=== PATIENT | male | born 1975 | race Caucasian/White ===

== ENCOUNTER 2017-05-03 08:16 | Emergency (ER) | payer MEDICAID ==
--- NOTE | 2017-05-03 08:53 | ED Physician Documentation ---
PD HPI ABD PAIN - Stated complaint Stated Complaint: L SIDE BACK PX - Chief complaint Chief Complaint: Abd Pain - History obtained from History obtained from: Patient - History of Present Illness Timing - onset: How many days ago (3) Timing - duration: Days (3) Timing - details: Abrupt onset, Still present, Waxing and waning (has noted some hematuria without clots the past month, but pain in flank only the past 3 days, worse today.) Quality: Aching, Sharp, Pain Location: LLQ Radiation: Left flank Improved by: BM (or passing gas, helps some of the pain, but then just steady pain left flank otherwise.). No: Eating Worsened by: No: Eating Associated symptoms: Nausea, Hematuria. No: Fever, Vomiting, Diarrhea (but has some loose stool the past 3 days.), Melena, Hematochezia, Dysuria, Chest pain Similar symptoms before: Has not had sx before Recently seen: Not recently seen Review of Systems Constitutional: denies: Fever, Chills, Myalgias Nose: denies: Rhinorrhea / runny nose, Congestion Throat: denies: Sore throat Cardiac: denies: Chest pain / pressure Respiratory: denies: Dyspnea, Cough GI: reports: Abdominal Pain. denies: Abdominal Swelling, Nausea, Vomiting, Constipation, Hematemesis, Bloody / black stool : reports: Hematuria. denies: Dysuria Skin: denies: Rash, Lesions PD PAST MEDICAL HISTORY - Past Medical History Past Medical History: No GI: None : None - Past Surgical History Past Surgical History: No - Present Medications Home Medications: Ambulatory Orders Medication Instructions Recorded Confirmed Dicyclomine [Bentyl] 10 mg PO QID PRN #15 capsule 05/03/17 HYDROcod/ACETAM 5/325 [[place] 5/325] 1 tab PO Q6H PRN #15 tablet 05/03/17 Naproxen [Naprosyn] 500 mg PO BID PRN #20 tablet 05/03/17 Ondansetron Odt [Zofran] 4 mg TL Q6H PRN #15 tablet 05/03/17 - Allergies Allergies/Adverse Reactions: Allergies Allergy/AdvReac Type Severity Reaction Status Date / Time No Known Drug Allergies Allergy Verified 02/24/14 02:56 - Social History Does the pt smoke?: No Smoking Status: Current every day smoker Does the pt drink ETOH?: Yes ETOH Use: Beer, Liquor Does the pt have substance abuse?: No - Immunizations Immunizations are current?: No - POLST Patient has POLST: No PD ED PE NORMAL - Vitals Vital signs reviewed: Yes - General General: Alert and oriented X 3, No acute distress, Well developed/nourished - HEENT HEENT: Moist mucous membranes, Pharynx benign - Neck Neck: Supple, no meningeal sign, No adenopathy - Cardiac Cardiac: RRR, No murmur - Respiratory Respiratory: Clear bilaterally - Abdomen Abdomen: Normal bowel sounds, Soft, Non tender, Non distended, No organomegaly - Back Back: Other (left CVA tenderness to percussion. ) - Derm Derm: Normal color, Warm and dry Results - Vitals Vitals: Vital Signs - 24 hr 05/03/17 05/03/17 09:42 12:10 Heart Rate 75 83 Respiratory 16 18 Rate Blood Pressure 114/72 116/72 O2 Saturation 100 98 Oxygen O2 Source Room air - Labs Labs: Laboratory Tests 05/03/17 05/03/17 05/03/17 08:30 08:30 09:20 WBC 10.9 H RBC 4.80 Hgb 15.9 Hct 45.9 MCV 95.6 H MCH 33.2 H MCHC 34.8 RDW 12.9 Plt Count 168 MPV 8.7 Neut # 7.3 H Lymph # 2.4 [place] # 0.8 Eos # 0.3 Baso # 0.1 Absolute Nucleated RBC 0.01 Nucleated RBCs 0.1 Sodium 143 Potassium 4.0 Chloride 105 Carbon Dioxide 27 Anion Gap 11.0 BUN 8 Creatinine 0.7 Estimated GFR (MDRD) 123 Glucose 156 H Calcium 9.5 Total Bilirubin 0.4 AST 38 ALT 24 Alkaline Phosphatase 58 Total Protein 7.9 Albumin 4.6 Globulin 3.3 Albumin/Globulin Ratio 1.4 Lipase 31 Urine Color BROWN Urine Clarity SL. CLOUDY Urine pH 6.5 Ur Specific [place] 1.025 Urine Protein 100 H Urine Glucose (UA) NEGATIVE Urine Ketones TRACE Urine Occult Blood LARGE H Urine Nitrite NEGATIVE Urine Bilirubin NEGATIVE Urine Urobilinogen 1 (NORMAL) Ur Leukocyte Esterase NEGATIVE Urine RBC TNTC H Urine WBC 0-3 Ur Squamous Epith Cells NONE SEEN Urine Bacteria Rare Urine Mucus Marked Strands Ur Microscopic Review INDICATED Urine Culture Comments NOT INDICATED Ethyl Alcohol 115.7 - Rads (name of study) KUB CT Radiology: Prelim report reviewed (proximal left ureteral stone, 3 mm, without other structural abnormal seen.) PD MEDICAL DECISION MAKING - ED course Complexity details: reviewed results, re-evaluated patient (feeling better with IV meds. Has stone without other abnormal seen. ), considered differential ( presume had some irritation from stone causing hematuria the past month, and now passing it. It is small size. No other abnormal on CT. He has some abd pain left side that improves with passing gas, so some intestinal aspect. Perhaps triggered by the stone or could be coincidental enteritis, which would be strange coincidence.), d/w patient Departure - Departure Disposition: 01 Home, Self Care Clinical Impression: Flank pain, acute, Hematuria, Ureterolithiasis Condition: Stable Record reviewed to determine appropriate education?: Yes Instructions: ED Stone Renal W Colic Follow-Up: [facility] [Provider Group] [facility] [Provider Group] Prescriptions: Dicyclomine [Bentyl] 10 mg PO QID PRN #15 capsule PRN Reason: Spasms Naproxen [Naprosyn] 500 mg PO BID PRN #20 tablet PRN Reason: Pain HYDROcod/ACETAM 5/325 [[place] 5/325] 1 tab PO Q6H PRN #15 tablet PRN Reason: Pain Ondansetron Odt [Zofran] 4 mg TL Q6H PRN #15 tablet PRN Reason: Nausea / Vomiting Comments: Maintain good hydration with lots of fluids. Naproxen twice daily for the next 5-7 days for the pain. Add Tylenol or hydrocodone if needed for worse pain. Ondansetron if needed for nausea. You are also having intestinal cramps and can use dicyclomine for that. This may be triggered by the kidney stone in the ureter irritating the intestine or may be a separate process. Recheck if that is not improved over the next couple of days. Regarding the flank pain from the kidney stone, follow-up with urology or family doctor if not improved over the next few days as well. Return sooner if increasing pain despite medications. I presume as the stone passes then the blood in the urine should clear as well. Discharge Date/Time: 05/03/17 12:31
[2017-05-03] MEDS ORDERED: HYDROmorphone 1 MG/ML SYRINGE IVP STA (09:12)
[2017-05-03] MEDS ORDERED: SODIUM CHLORIDE 0.9% 1,000 ML IV ONE ×2 (09:12→09:14)
[2017-05-03] MEDS ORDERED: ONDANSETRON 4 MG/2 ML VIAL IVP STA (09:12)
[2017-05-03 09:21] LABS: BASOPHILS # (AUTO) 0.1 10^3/uL (0.0-0.1); BASOPHILS % (AUTO) 0.6 %; EOSINOPHILS # (AUTO) 0.3 10^3/uL (0.0-0.7); EOSINOPHILS % (AUTO) 2.8 %; HCT - HEMATOCRIT 45.9 % (42.0-52.0); HGB - HEMOGLOBIN 15.9 g/dL (14.0-18.0); LYMPHOCYTES # (AUTO) 2.4 10^3/uL (1.5-3.5); LYMPHOCYTES % (AUTO) 22.3 %; MEAN CORPUSCULAR HEMOGLOBIN 33.2 pg (27.0-31.0); MEAN CORPUSCULAR HGB CONC 34.8 g/dL (32.0-36.0); MEAN CORPUSCULAR VOLUME 95.6 fL (80.0-94.0); MEAN PLATELET VOLUME 8.7 fL (7.4-11.4); MONOCYTES # (AUTO) 0.8 10^3/uL (0.0-1.0); MONOCYTES % (AUTO) 7.3 %; NEUTROPHILS # (AUTO) 7.3 10^3/uL (1.5-6.6); NUCLEATED RED BLOOD CELLS AUTO 0.1 /100WBC; RED CELL DISTRIBUTION WIDTH 12.9 % (12.0-15.0); UNCORRECTED WHITE BLOOD COUNT 10.9 x10^3/uL; WHITE BLOOD COUNT 10.9 x10^3/uL (4.8-10.8)
[2017-05-03] MEDS ORDERED: ONDANSETRON 4 MG/2 ML VIAL ONE (09:25)
[2017-05-03] MEDS ORDERED: HYDROmorphone 1 MG/ML SYRINGE ONE (09:25)
[2017-05-03 09:38] LABS: ALBUMIN/GLOBULIN RATIO 1.4 (1.0-2.2); BILIRUBIN,TOTAL 0.4 mg/dL (0.2-1.0); CALCIUM 9.5 mg/dL (8.5-10.3); CREATININE 0.7 mg/dL (0.6-1.2); TOTAL PROTEIN 7.9 g/dL (6.7-8.2)
[2017-05-03 09:38] LABS: PH,URINE 6.5 PH (5.0-7.5)
[2017-05-03 09:48] LABS: UA w/ MICROSCOPIC CHARGE YES
[2017-05-03 09:51] LABS: BILIRUBIN,URINE NEGATIVE (NEGATIVE)
[2017-05-03 09:56] LABS: UR CULTURE IF IND NOT INDICATED; WBC,URINE 0-3 /HPF (0-3)
[2017-05-03] MEDS ORDERED: KETOROLAC 60 MG/2 ML VIAL IVP STA (10:02)
[2017-05-03] MEDS ORDERED: ACETAMINOPHEN 1,000 MG/100 ML 100 ML IV STA (10:02)
[2017-05-03] MEDS ORDERED: DIPHENOX/ATROPINE 2.5/0.025 MG TABLET PO STA (10:03)
--- NOTE | 2017-05-03 10:05 | CT Preliminary Report ---
Exam: CT Abdomen/Pelvis W/O Impression: 3 mm calculus within the left proximal ureter causing mild hydronephrosis and mild proxim al hydroureter. Punctate calcification in the lower pole of the right kidney that may be vascular in origin or repres ent a nonobstructing calculus. [facility] SITE ID: [id number]
--- NOTE | 2017-05-03 10:08 | CT Report ---
EXAM: CT ABDOMEN AND PELVIS (CT KUB) EXAM DATE: 05/03/2017 09:47 AM. CLINICAL HISTORY: Left flank pain; blood in urine. COMPARISONS: None. TECHNIQUE: Routine axial helical CT imaging was performed through the abdomen and pelvis without IV c ontrast. Reconstructions: Coronal and sagittal. In accordance with CT protocol optimization, one or more of the following dose reduction techniques w ere utilized for this exam: automated exposure control, adjustment of mA and/or KV based on patient s ize, or use of iterative reconstructive technique. FINDINGS: The lung bases are without evidence of a mass or infiltrate. The liver, spleen, pancreas, and adrenal glands demonstrate a normal noncontrast CT appearance. The r ight kidney is without evidence of nephrolithiasis. There is a punctate calcification in the lower po le of the right kidney (image 58 of series 3). This appears to be vascular in origin and could also r epresent a nonobstructing calculus. There is mild left hydronephrosis and mild left hydroureter. This extends to the level of a 3 mm calculus (image 64 of series 3). The left distal ureter is not dilate d. The urinary bladder is without evidence of a calculus. The appendix is normal in appearance. There are no dilated loops of bowel to suggest the presence of an obstruction. There is no evidence of diverticulosis or diverticulitis. No mass or cyst is seen wit hin the pelvis. Nonspecific prosthetic calcifications are noted. There are degenerative changes of the thoracic spine. Impression: 3 mm calculus within the left proximal ureter causing mild hydronephrosis and mild proxim al hydroureter. Punctate calcification in the lower pole of the right kidney that may be vascular in origin or repres ent a nonobstructing calculus. [facility] Referring Provider Line: [phone] SITE ID: [id number]
[2017-05-03] MEDS ORDERED: KETOROLAC 30 MG/ML VIAL ONE (10:22)
[2017-05-03] MEDS ORDERED: DIPHENOX/ATROPINE 2.5/0.025 MG TABLET PO ONE (10:22)
[2017-05-03] MEDS ORDERED: ACETAMINOPHEN 1,000 MG/100 ML 100 ML IV ONE (10:23)
[2017-05-03 12:11] VITALS: BP 116/72
== END 2017-05-03 12:31 | disposition home or self-care (01) ==
LOC: ED 08:16
DX: N13.2 Hydronephrosis with renal and ureteral calculous obstruction (principal); R31.9 Hematuria, unspecified; F17.200 Nicotine dependence, unspecified, uncomplicated
CPT/HCPCS: 36415; 74176; 80053; 80320; 81001; 83690; 85025; 87491; 87591; 96361; 96374; 96375; 99284; A9270; J0131; 81003; 87086

== ENCOUNTER 2019-01-08 08:00 | Outpatient (CLI) | payer MEDICAID ==
[2019-01-08 19:55] LABS: BASOPHILS # (AUTO) 0.1 10^3/uL (0.0-0.1); BASOPHILS % (AUTO) 0.7 %; EOSINOPHILS # (AUTO) 0.3 10^3/uL (0.0-0.7); EOSINOPHILS % (AUTO) 4.2 %; HGB - HEMOGLOBIN 15.6 g/dL (14.0-18.0); LYMPHOCYTES # (AUTO) 1.5 10^3/uL (1.5-3.5); LYMPHOCYTES % (AUTO) 20.9 %; MEAN CORPUSCULAR HEMOGLOBIN 31.9 pg (27.0-31.0); MEAN CORPUSCULAR HGB CONC 33.7 g/dL (32.0-36.0); MEAN CORPUSCULAR VOLUME 94.8 fL (80.0-94.0); MEAN PLATELET VOLUME 9.3 fL (7.4-11.4); MONOCYTES # (AUTO) 0.6 10^3/uL (0.0-1.0); MONOCYTES % (AUTO) 8.3 %; NEUTROPHILS # (AUTO) 4.8 10^3/uL (1.5-6.6); NEUTROPHILS % (AUTO) 65.9 %; PLT - PLATELET COUNT 184 10^3/uL (130-450); RED BLOOD COUNT 4.88 10^6/uL (4.70-6.10); RED CELL DISTRIBUTION WIDTH 12.8 % (12.0-15.0); WHITE BLOOD COUNT 7.3 x10^3/uL (4.8-10.8)
[2019-01-08 20:26] LABS: BUN - BLOOD UREA NITROGEN 14 mg/dL (6-20); CALCIUM 9.3 mg/dL (8.5-10.3); CARBON DIOXIDE - CO2 26 mmol/L (21-32); CHLORIDE 103 mmol/L (101-111); CHOL/HDL RATIO 2.7 (<5.0); CHOLESTEROL 195 mg/dL; CREATININE 0.8 mg/dL (0.6-1.2); GFR - MDRD 105 (>89); GLUCOSE 106 mg/dL (70-100); HDL CHOLESTEROL 72 mg/dL; LDL CHOLESTEROL,CALCULATED 106 mg/dL; LDL/HDL RATIO 1.5 (<3.6); SODIUM 138 mmol/L (135-145); VLDL CHOLESTEROL 17 mg/dL
[2019-01-10 12:07] LABS: HEPATITIS C ANTIBODY NON-REACTIVE (NON-REACTIVE)
[2019-01-10 14:06] LABS: HIV AG/AB 4TH GEN NON-REACTIVE (NON-REACTIVE)
[2019-01-11 15:26] LABS: HSV 1 IGG TYPE SPECIFIC AB 22.9 index; HSV 2 IGG TYPE SPECIFIC AB 10.2 index
== END 2019-01-08 23:59 | disposition home or self-care (01) ==
LOC: LAB.N 08:00
PROVIDERS: ATTEND Physician Assistant Medical
DX: F32.9 Major depressive disorder, single episode, unspecified (principal); Z13.220 Encounter for screening for lipoid disorders; Z11.3 Encounter for screening for infections with a predominantly sexual mode of transmission
CPT/HCPCS: 36415; 80048; 80061; 81599; 83721; 84443; 85025; 86592; 86695; 86696; 86803; 87389; 87491; 87591

== ENCOUNTER 2019-06-11 13:31 | Emergency (ER) | payer MEDICAID ==
[2019-06-11 14:13] LABS: BILIRUBIN,URINE NEGATIVE (NEGATIVE); GLUCOSE, URINE (UA) NEGATIVE (NEGATIVE); KETONES,URINE (UA) TRACE mg/dL (NEGATIVE); LEUKOCYTE ESTERASE, URINE NEGATIVE (NEGATIVE); NITRITE,URINE NEGATIVE (NEGATIVE); OCCULT BLOOD,URINE LARGE (NEGATIVE); PH,URINE 6.5 PH (5.0-7.5); PROTEIN,URINE TRACE mg/dL (NEGATIVE); UROBILINOGEN,URINE 0.2 (NORMAL) E.U./dL (NORMAL)
[2019-06-11 14:14] LABS: CLARITY,URINE CLEAR (CLEAR)
[2019-06-11 14:20] LABS: BASOPHILS # (AUTO) 0.1 10^3/uL (0.0-0.1); BASOPHILS % (AUTO) 0.6 %; EOSINOPHILS # (AUTO) 0.3 10^3/uL (0.0-0.7); EOSINOPHILS % (AUTO) 2.4 %; LYMPHOCYTES # (AUTO) 2.2 10^3/uL (1.5-3.5); LYMPHOCYTES % (AUTO) 16.9 %; MEAN CORPUSCULAR HEMOGLOBIN 32.7 pg (27.0-31.0); MEAN CORPUSCULAR HGB CONC 33.8 g/dL (32.0-36.0); MEAN CORPUSCULAR VOLUME 96.7 fL (80.0-94.0); MEAN PLATELET VOLUME 10.3 fL (7.4-11.4); MONOCYTES # (AUTO) 0.9 10^3/uL (0.0-1.0); MONOCYTES % (AUTO) 7.1 %; NEUTROPHILS # (AUTO) 9.3 10^3/uL (1.5-6.6); NEUTROPHILS % (AUTO) 72.5 %; PLT - PLATELET COUNT 192 10^3/uL (130-450); RED CELL DISTRIBUTION WIDTH 12.4 % (12.0-15.0); WHITE BLOOD COUNT 12.9 x10^3/uL (4.8-10.8)
[2019-06-11 14:22] LABS: BACTERIA,URINE None Seen /HPF (None Seen); RBC,URINE TNTC /HPF (0-5); SQUAMOUS EPITHELIAL CELL,UR NONE SEEN (<= Few)
--- NOTE | 2019-06-11 14:24 | ED Physician Documentation ---
PD HPI ABD PAIN - Stated complaint Stated Complaint: R SIDE PX - Chief complaint Chief Complaint: Abd Pain - History obtained from History obtained from: Patient - History of Present Illness Timing - onset: How many hours ago (2) Timing - duration: Hours (2) Timing - details: Abrupt onset, Still present Quality: Aching, Sharp, Pain Location: RLQ Radiation: Right flank Improved by: Vomiting. No: Eating, Position Worsened by: No: Eating, Breathing, Position Associated symptoms: Nausea, Vomiting. No: Fever, Diarrhea, Dysuria Similar symptoms before: Diagnosis (kidney stone in the past, few years ago.) Recently seen: Not recently seen Review of Systems Constitutional: denies: Fever, Chills Nose: denies: Rhinorrhea / runny nose, Congestion Throat: denies: Sore throat Respiratory: denies: Cough GI: reports: Abdominal Pain, Nausea, Vomiting. denies: Abdominal Swelling, Diarrhea : denies: Dysuria, Frequency Musculoskeletal: reports: Back pain (right flank). denies: Neck pain Neurologic: denies: Generalized weakness PD PAST MEDICAL HISTORY - Past Medical History Cardiovascular: None Respiratory: None Neuro: None Endocrine/Autoimmune: None GI: None : Kidney stones - Past Surgical History Past Surgical History: No - Present Medications Home Medications: Ambulatory Orders Medication Instructions Recorded Confirmed Dicyclomine [Bentyl] 10 mg PO QID PRN #15 capsule 05/03/17 HYDROcod/ACETAM 5/325 [[place] 5/325] 1 tab PO Q6H PRN #15 tablet 05/03/17 Naproxen [Naprosyn] 500 mg PO BID PRN #20 tablet 05/03/17 Ondansetron Odt [Zofran] 4 mg TL Q6H PRN #15 tablet 05/03/17 Ondansetron Odt [Zofran] 4 mg TL Q6H PRN #10 tablet 06/11/19 Oxycodone HCl/Acetaminophen 1 each PO Q4H PRN #20 tablet 06/11/19 [Percocet 7.5-325 mg Tablet] Tamsulosin [Flomax] 0.4 mg PO DAILY #5 capsule 06/11/19 dexAMETHasone [Decadron] 4 mg PO DAILY #5 tablet 06/11/19 - Allergies Allergies/Adverse Reactions: Allergies Allergy/AdvReac Type Severity Reaction Status Date / Time No Known Drug Allergies Allergy Verified 06/11/19 13:34 - Social History Does the pt smoke?: No Smoking Status: Current every day smoker Does the pt drink ETOH?: Yes Does the pt have substance abuse?: No - Immunizations Immunizations are current?: No - POLST Patient has POLST: No PD ED PE NORMAL - Vitals Vital signs reviewed: Yes - General General: Alert and oriented X 3, Well developed/nourished, Other (appears very uncomfortable, with active vomiting and marked pain. ) - HEENT HEENT: Pharynx benign - Neck Neck: Supple, no meningeal sign, No adenopathy - Cardiac Cardiac: RRR, No murmur - Respiratory Respiratory: Clear bilaterally - Abdomen Abdomen: Normal bowel sounds, Soft, Non distended, No organomegaly, Other (t karen RLQ and right CVA) - Male Male : Deferred - Rectal Rectal: Deferred - Derm Derm: Normal color, Warm and dry - Extremities Extremities: Normal ROM s pain, No edema, No calf tenderness / cord - Neuro Neuro: Alert and oriented X 3, No motor deficit, Normal speech Results - Vitals Vitals: Vital Signs - 24 hr 06/11/19 06/11/19 13:34 15:50 Temperature 36.2 C L Heart Rate 72 65 Respiratory 24 18 Rate Blood Pressure 144/88 H 130/85 H O2 Saturation 100 99 Oxygen O2 Source Room air - Labs Labs: Laboratory Tests 06/11/19 06/11/19 06/11/19 14:08 14:15 14:15 WBC 12.9 H RBC 4.90 Hgb 16.0 Hct 47.4 MCV 96.7 H MCH 32.7 H MCHC 33.8 RDW 12.4 Plt Count 192 MPV 10.3 Neut # (Auto) 9.3 H Lymph # (Auto) 2.2 [place] # (Auto) 0.9 Eos # (Auto) 0.3 Baso # (Auto) 0.1 Absolute Nucleated RBC 0.00 Nucleated RBC % 0.0 Sodium 143 Potassium 3.5 Chloride 105 Carbon Dioxide 22 Anion Gap 16.0 H BUN 11 Creatinine 1.0 Estimated GFR (MDRD) 80 L Glucose 115 H Calcium 9.5 Total Bilirubin 0.8 AST 29 ALT 21 Alkaline Phosphatase 58 Total Protein 7.8 Albumin 4.1 Globulin 3.7 Albumin/Globulin Ratio 1.1 Lipase 37 Urine Color YELLOW Urine Clarity CLEAR Urine pH 6.5 Ur Specific [place] 1.025 Urine Protein TRACE Urine Glucose (UA) NEGATIVE Urine Ketones TRACE Urine Occult Blood LARGE H Urine Nitrite NEGATIVE Urine Bilirubin NEGATIVE Urine Urobilinogen 0.2 (NORMAL) Ur Leukocyte Esterase NEGATIVE Urine RBC TNTC H Urine WBC 0-3 Ur Squamous Epith Cells NONE SEEN Urine Bacteria None Seen Ur Microscopic Review INDICATED Urine Culture Comments NOT INDICATED - Rads (name of study) KUB CT Radiology: Prelim report reviewed, EMP read contemporaneously (3 mm stone at the distal UVJ, almost into the bladder. Moderate right hydronephrosis. ), See rad report PD MEDICAL DECISION MAKING - ED course Complexity details: re-evaluated patient (much improved with several meds for kidney stone. ), considered differential, d/w patient Departure - Departure Disposition: 01 Home, Self Care Clinical Impression: Right sided abdominal pain, Ureterolithiasis Condition: Stable Record reviewed to determine appropriate education?: Yes Instructions: ED Stone Renal W Colic Prescriptions: dexAMETHasone [Decadron] 4 mg PO DAILY #5 tablet Ondansetron Odt [Zofran] 4 mg TL Q6H PRN #10 tablet PRN Reason: Nausea / Vomiting Oxycodone HCl/Acetaminophen [Percocet 7.5-325 mg Tablet] 1 each PO Q4H PRN #20 tablet PRN Reason: Pain Tamsulosin [Flomax] 0.4 mg PO DAILY #5 capsule Comments: Adequate hydration. Use some Tylenol or ibuprofen if needed for mild pains. Percocet if needed for worse pain. Ondansetron if needed for nausea. Your stone is 3 to 4 mm and is passable size and is almost into the bladder at this point. Add Decadron steroid for inflammation and tamsulosin antispasmodic to try to reduce tension of the ureter muscles to help promote passage. Recheck if not improved over the next few days. Return sooner if worse again despite medication. Discharge Date/Time: 06/11/19 16:24
[2019-06-11] MEDS ORDERED: HYDROmorphone 1 MG/ML CARPUJECT IVP STA (14:26)
[2019-06-11] MEDS ORDERED: ONDANSETRON 4 MG/2 ML VIAL IVP STA (14:26)
[2019-06-11] MEDS ORDERED: SODIUM CHLORIDE 0.9% 1,000 ML IV ONE (14:26)
[2019-06-11] MEDS ORDERED: LIDOCAINE-MPF 2% 6 ML in SODIUM CHLORIDE 0.9% 50 ML IV STA (14:26)
[2019-06-11] MEDS ORDERED: KETOROLAC 30 MG/ML VIAL IVP STA (14:26)
[2019-06-11 14:50] LABS: ALBUMIN 4.1 g/dL (3.2-5.5); ALBUMIN/GLOBULIN RATIO 1.1 (1.0-2.2); BILIRUBIN,TOTAL 0.8 mg/dL (0.2-1.0); CALCIUM 9.5 mg/dL (8.5-10.3); TOTAL PROTEIN 7.8 g/dL (6.7-8.2)
[2019-06-11] MEDS ORDERED: DEXAMETHASONE 10 MG/ML VIAL IVP STA (15:09)
--- NOTE | 2019-06-11 15:22 | CT Report ---
Reason: right flank/abd pain onset 11:30 today Procedure Date: 06/11/2019 Accession Number: [id number] / [id number] Procedure: CT - Abdomen/Pelvis WO CPT Code: FULL RESULT: EXAM: CT ABDOMEN AND PELVIS EXAM DATE: 06/11/2019 03:00 PM. CLINICAL HISTORY: Right flank/abd pain onset 11: 30 today. COMPARISONS: ABDOMEN/PELVIS W/O 05/03/2017 9:31 AM. TECHNIQUE: Routine helical CT imaging was performed through the abdomen and pelvis. IV contrast: None. Enteric contrast: No. Reconstructions: Coronal and sagittal. In accordance with CT protocol optimization, one or more of the following dose reduction techniques were utilized for this exam: automated exposure control, adjustment of mA and/or KV based on patient size, or use of iterative reconstructive technique. FINDINGS: Lung Bases: Unremarkable. Small hiatal hernia Liver: Normal. No masses. Gallbladder/Bile Ducts: Unremarkable. Spleen: Normal. Pancreas: Normal. Adrenal Glands: Normal. Kidneys: Right kidney: Mild hydroureteronephrosis down to a 7 x 3 mm ureteral calculi at the ureterovesical junction. There is upper pole nonobstructing 4 mm calcification. Left kidney: Unremarkable. Peritoneal Cavity/Bowel: Normal. No free fluid, free air or adenopathy. No masses or acute inflammatory process. The appendix is well visualized and normal. Pelvic Organs: Prostate calcifications The bladder and visualized pelvic organs are otherwise within normal limits. Vasculature: No aneurysms or other significant abnormality. Bones: No significant abnormality. Other: None. IMPRESSION: 1. Mild right hydroureteronephrosis down to a 7 x 3 mm ureteral calculi at the ureterovesical junction. Upper pole nonobstructing 4 mm calcifications [facility]
[2019-06-11] MEDS ORDERED: TAMSULOSIN 0.4 MG CAPSULE PO STA (15:37)
[2019-06-11 15:51] VITALS: BP 130/85
== END 2019-06-11 16:24 | disposition home or self-care (01) ==
LOC: ED 13:31
DX: N13.2 Hydronephrosis with renal and ureteral calculous obstruction (principal); Z87.442 Personal history of urinary calculi; F17.200 Nicotine dependence, unspecified, uncomplicated
CPT/HCPCS: 36415; 74176; 80053; 81001; 83690; 85025; 96365; 96375; 99284; 99285; A9270; J1170; J7040; 81003; 87086

== ENCOUNTER 2020-01-23 16:41 | Outpatient (CLI) | payer MEDICAID | END 2020-01-23 16:42 | disposition home or self-care (01) | LOC: COV 16:41 | PROVIDERS: ATTEND Family Medicine | DX: R50.9 Fever, unspecified (principal); R05 Cough; R06.02 Shortness of breath; M79.10 Myalgia, unspecified site; R53.83 Other fatigue; R19.7 Diarrhea, unspecified | CPT/HCPCS: 81599 ==

== ENCOUNTER 2020-06-10 11:58 | Outpatient (CLI) | payer MEDICAID ==
[2020-06-10 18:12] LABS: BASOPHILS # (AUTO) 0.1 10^3/uL (0.0-0.1); BASOPHILS % (AUTO) 1.1 %; EOSINOPHILS # (AUTO) 0.3 10^3/uL (0.0-0.7); EOSINOPHILS % (AUTO) 3.5 %; HGB - HEMOGLOBIN 15.7 g/dL (14.0-18.0); LYMPHOCYTES # (AUTO) 1.9 10^3/uL (1.5-3.5); LYMPHOCYTES % (AUTO) 25.8 %; MEAN CORPUSCULAR HEMOGLOBIN 33.2 pg (27.0-31.0); MEAN CORPUSCULAR HGB CONC 32.4 g/dL (32.0-36.0); MEAN CORPUSCULAR VOLUME 102.5 fL (80.0-94.0); MEAN PLATELET VOLUME 10.7 fL (7.4-11.4); MONOCYTES # (AUTO) 0.7 10^3/uL (0.0-1.0); MONOCYTES % (AUTO) 9.8 %; NEUTROPHILS # (AUTO) 4.4 10^3/uL (1.5-6.6); NEUTROPHILS % (AUTO) 59.4 %; PLT - PLATELET COUNT 198 10^3/uL (130-450); RED BLOOD COUNT 4.73 10^6/uL (4.70-6.10); RED CELL DISTRIBUTION WIDTH 11.8 % (12.0-15.0); WHITE BLOOD COUNT 7.3 x10^3/uL (4.8-10.8)
[2020-06-10 18:35] LABS: ALBUMIN 4.4 g/dL (3.2-5.5); ALBUMIN/GLOBULIN RATIO 1.2 (1.0-2.2); BILIRUBIN,TOTAL 0.8 mg/dL (0.2-1.0); CALCIUM 10.2 mg/dL (8.5-10.3); CREATININE 0.7 mg/dL (0.6-1.2); TOTAL PROTEIN 8.2 g/dL (6.7-8.2)
== END 2020-06-10 23:59 | disposition home or self-care (01) ==
LOC: LAB.WCP 11:58
PROVIDERS: ATTEND Nurse Practitioner
DX: Z13.228 Encounter for screening for other metabolic disorders (principal); R10.9 Unspecified abdominal pain; R53.83 Other fatigue
CPT/HCPCS: 36415; 80053; 84443; 85025

== ENCOUNTER 2020-06-15 17:36 | Outpatient (CLI) | payer MEDICAID ==
--- NOTE | 2020-06-15 19:48 | Ultrasound Report ---
PROCEDURE: Abdomen Limited INDICATIONS: ABDOMINAL PAIN TECHNIQUE: Real-time scanning was performed of the abdominal and retroperitoneal organs, with image documentatio n. COMPARISON: None. FINDINGS: Liver: Liver is normal in size and demonstrates increased echogenicity. Gallbladder: The gallbladder wall measures 2.0 mm in diameter. A small amount of sludge is present in the fundus. No pericholecystic fluid or sonographic Helms sign. Biliary ducts: Intrahepatic bile ducts are non-dilated. Extrahepatic bile duct caliber measures 6.2 mm. Normal is 6-7 mm or less in diameter, or 10 mm or less post-cholecystectomy. Pancreas: Visualized portions of the pancreas are sonographically normal. Spleen: Spleen is normal in size and homogeneous in echotexture. Kidneys: Kidneys are normal in size and echotexture. Right kidney measures 9.9 cm long. No Hydronep hrosis or nephrolithiasis. No solid masses. IMPRESSION: 1. Trace gallbladder sludge. No findings to suggest cholelithiasis or acute cholecystitis. 2. Increased hepatic echogenicity suggesting hepatic steatosis although other sources of hepatocellul ar dysfunction cannot be excluded. Reviewed by: Loretta Garcia MD on 06/15/2020 7:47 PM PDT Approved by: Loretta Garcia MD on 06/15/2020 7:47 PM PDT Station ID: [id number]
== END 2020-06-15 17:37 | disposition home or self-care (01) ==
LOC: DI 17:36
PROVIDERS: ATTEND Nurse Practitioner
DX: R93.2 Abnormal findings on diagnostic imaging of liver and biliary tract (principal)
CPT/HCPCS: 76705

== ENCOUNTER 2020-07-26 08:00 | Outpatient (CLI) | payer MEDICAID ==
[2020-07-26 10:57] LABS: H. PYLORIS ANTIGEN STL NEGATIVE (Negative)
== END 2020-07-26 23:59 | disposition home or self-care (01) ==
LOC: LAB.R 08:00
PROVIDERS: ATTEND Nurse Practitioner
DX: R10.9 Unspecified abdominal pain (principal)
CPT/HCPCS: 87338

== ENCOUNTER 2020-08-07 09:13 | Outpatient (CLI) | payer MEDICAID ==
--- NOTE | 2020-08-07 12:35 | Nuclear Medicine Report ---
PROCEDURE: Hepatobiliary HIDA w/o Rx INDICATIONS: ABDOMINAL PAIN RADIOPHARMACEUTICAL: 5.08 mCi Tc-99m mebrofenin intravenously TECHNIQUE: Following intravenous administration of Tc-99m mebrofenin, sequential anterior abdominal images were obtained through 60 minutes. COMPARISON: None. FINDINGS: There is normal radiotracer uptake and excretion by the liver. There is normal visualization of the intrahepatic ducts, common bile duct, and gallbladder. There is normal radiotracer transit into the duodenum. IMPRESSION: Normal hepatobiliary uptake and scan. Reviewed by: Alexandr Lowe MD on 08/07/2020 12:34 PM PST Approved by: Alexandr Lowe MD on 08/07/2020 12:34 PM PST Station ID: [id number]
== END 2020-08-07 09:14 | disposition home or self-care (01) ==
LOC: DI 09:13
PROVIDERS: ATTEND Nurse Practitioner
DX: R10.9 Unspecified abdominal pain (principal)
CPT/HCPCS: 78226

== ENCOUNTER 2020-12-11 23:02 | Emergency (ER) | payer MEDICAID ==
[2020-12-11 23:44] LABS: BILIRUBIN,URINE NEGATIVE (NEGATIVE); GLUCOSE, URINE (UA) 100 mg/dL (NEGATIVE); KETONES,URINE (UA) >=80 mg/dL (NEGATIVE); LEUKOCYTE ESTERASE, URINE SMALL (NEGATIVE); NITRITE,URINE POSITIVE (NEGATIVE); OCCULT BLOOD,URINE LARGE (NEGATIVE); PH,URINE 6.5 PH (5.0-7.5); PROTEIN,URINE >=300 mg/dL (NEGATIVE); UROBILINOGEN,URINE 2 E.U./dL (NORMAL)
[2020-12-11 23:45] LABS: CLARITY,URINE CLOUDY (CLEAR)
[2020-12-11] MEDS ORDERED: SODIUM CHLORIDE 0.9% 1,000 ML IV STA (23:48)
[2020-12-11 23:52] LABS: BACTERIA,URINE Moderate /HPF (None Seen); RBC,URINE TNTC /HPF (0-5); SQUAMOUS EPITHELIAL CELL,UR NONE SEEN (<= Few); WBC,URINE >25 /HPF (0-3)
[2020-12-11 23:53] LABS: BASOPHILS # (AUTO) 0.1 10^3/uL (0.0-0.1); BASOPHILS % (AUTO) 0.7 %; EOSINOPHILS # (AUTO) 0.1 10^3/uL (0.0-0.7); EOSINOPHILS % (AUTO) 1.1 %; HCT - HEMATOCRIT 47.8 % (42.0-52.0); LYMPHOCYTES # (AUTO) 1.3 10^3/uL (1.5-3.5); LYMPHOCYTES % (AUTO) 13.3 %; MEAN CORPUSCULAR HEMOGLOBIN 33.4 pg (27.0-31.0); MEAN CORPUSCULAR HGB CONC 33.5 g/dL (32.0-36.0); MEAN CORPUSCULAR VOLUME 99.8 fL (80.0-94.0); MEAN PLATELET VOLUME 10.3 fL (7.4-11.4); MONOCYTES # (AUTO) 1.1 10^3/uL (0.0-1.0); NEUTROPHILS # (AUTO) 7.1 10^3/uL (1.5-6.6); NEUTROPHILS % (AUTO) 73.5 %; PLT - PLATELET COUNT 207 10^3/uL (130-450); RED BLOOD COUNT 4.79 10^6/uL (4.70-6.10); RED CELL DISTRIBUTION WIDTH 11.8 % (12.0-15.0); WHITE BLOOD COUNT 9.7 x10^3/uL (4.8-10.8)
[2020-12-12 00:03] LABS: ALBUMIN 4.5 g/dL (3.2-5.5); ALBUMIN/GLOBULIN RATIO 1.1 (1.0-2.2); BILIRUBIN,TOTAL 1.2 mg/dL (0.2-1.0); CALCIUM 9.7 mg/dL (8.5-10.3); CREATININE 0.9 mg/dL (0.6-1.2); POTASSIUM 3.9 mmol/L (3.5-5.0); TOTAL PROTEIN 8.6 g/dL (6.7-8.2)
[2020-12-12] MEDS ORDERED: ONDANSETRON 4 MG/2 ML VIAL IVP STA (00:57)
[2020-12-12] MEDS ORDERED: KETOROLAC 30 MG/ML VIAL IVP STA (00:57)
[2020-12-12] MEDS ORDERED: CIPROFLOXACIN 250 MG TABLET PO STA (01:37)
--- NOTE | 2020-12-12 01:40 | ED Physician Documentation ---
History of Present Illness - Stated complaint Stated Complaint: R FLANK PX - Chief complaint Chief Complaint: Abd Pain - History obtained from History obtained from: Patient - Additonal information Additional information: Patient comes emergency department chief complaint of right flank pain for the last approximately day. Patient states that he has been dealing with some "digestive system issues" and decreased appetite for about the last year, and then he already is plugged in for this and following up with his doctor. Patient states that some years ago, he was diagnosed with a large kidney stone. He does not know if it ever came out. He states that this somehow feels similar. The patient denies any dysuria he states that today, he noticed that his urine was extremely dark. He does admit to not drinking much in the way of fluids today and also notes that he has had some nausea, vomiting, and diarrhea at home. No cough or shortness of breath. No other complaints at this time. No fever or chills. Review of Systems Ten Systems: 10 systems reviewed and negative Constitutional: reports: Reviewed and negative Eyes: reports: Reviewed and negative Ears: reports: Reviewed and negative Nose: reports: Reviewed and negative Throat: reports: Reviewed and negative Cardiac: reports: Reviewed and negative Respiratory: reports: Reviewed and negative GI: reports: Abdominal Pain, Nausea : reports: Reviewed and negative Skin: reports: Reviewed and negative Musculoskeletal: reports: Reviewed and negative Neurologic: reports: Reviewed and negative Psychiatric: reports: Reviewed and negative Endocrine: reports: Reviewed and negative Immunocompromised: reports: Reviewed and negative PD PAST MEDICAL HISTORY - Past Medical History Past Medical History: Yes Cardiovascular: None Respiratory: None Neuro: None Endocrine/Autoimmune: None GI: None : Kidney stones HEENT: None Psych: Depression Musculoskeletal: None Derm: None - Past Surgical History Past Surgical History: No - Present Medications Home Medications: Ambulatory Orders Medication Instructions Recorded Confirmed Tamsulosin [Flomax] 0.4 mg PO DAILY #5 capsule 06/11/19 12/12/20 Ciprofloxacin HCl [Cipro] 500 mg PO BID #20 tablet 12/12/20 - Allergies Allergies/Adverse Reactions: Allergies Allergy/AdvReac Type Severity Reaction Status Date / Time No Known Drug Allergies Allergy Verified 12/11/20 23:27 - Social History Does the pt smoke?: No Smoking Status: Never smoker Does the pt drink ETOH?: Yes Does the pt have substance abuse?: No - Immunizations Immunizations are current?: No - POLST Patient has POLST: No PD ED PE NORMAL - Vitals Vital signs reviewed: Yes - General General: Alert and oriented X 3, No acute distress - HEENT HEENT: Atraumatic, PERRL, EOMI, Moist mucous membranes - Neck Neck: Supple, no meningeal sign - Cardiac Cardiac: RRR, No murmur - Respiratory Respiratory: No respiratory distress, Clear bilaterally - Abdomen Abdomen: Soft, Non distended, Other (Mild tenderness suprapubic area and right flank.) - Back Back: Other (Mild right CVA tenderness ) - Derm Derm: Normal color, Warm and dry, No rash - Extremities Extremities: No deformity, No edema, No calf tenderness / cord - Neuro Neuro: Alert and oriented X 3, No motor deficit, No sensory deficit - Psych Psych: Normal mood, Normal affect Results - Vitals Vitals: Vital Signs - 24 hr 12/11/20 12/11/20 12/12/20 23:26 23:41 00:58 Temperature 36.0 C L Heart Rate 73 61 75 Respiratory 20 20 17 Rate Blood Pressure 168/95 H 148/98 H 131/84 H O2 Saturation 100 100 100 12/12/20 01:53 Temperature Heart Rate 74 Respiratory 17 Rate Blood Pressure 124/84 H O2 Saturation 97 Oxygen O2 Source Room air - Labs Labs: Laboratory Tests 12/11/20 12/11/20 12/11/20 23:20 23:20 23:30 WBC 9.7 RBC 4.79 Hgb 16.0 Hct 47.8 MCV 99.8 H MCH 33.4 H MCHC 33.5 RDW 11.8 L Plt Count 207 MPV 10.3 Neut # (Auto) 7.1 H Lymph # (Auto) 1.3 L [place] # (Auto) 1.1 H Eos # (Auto) 0.1 Baso # (Auto) 0.1 Absolute Nucleated RBC 0.00 Nucleated RBC % 0.0 Sodium 135 Potassium 3.9 Chloride 96 L Carbon Dioxide 24 Anion Gap 15.0 H BUN 15 Creatinine 0.9 Estimated GFR (MDRD) 90 Glucose 100 Calcium 9.7 Total Bilirubin 1.2 H AST 54 H ALT 40 Alkaline Phosphatase 76 Total Protein 8.6 H Albumin 4.5 Globulin 4.1 Albumin/Globulin Ratio 1.1 Lipase 49 Urine Color BROWN Urine Clarity CLOUDY Urine pH 6.5 Ur Specific [place] >=1.030 H Urine Protein >=300 H Urine Glucose (UA) 100 H Urine Ketones >=80 H Urine Occult Blood LARGE H Urine Nitrite POSITIVE H Urine Bilirubin NEGATIVE Urine Urobilinogen 2 H Ur Leukocyte Esterase SMALL H Urine RBC TNTC H Urine WBC >25 H Ur Squamous Epith Cells NONE SEEN Urine Bacteria Moderate H Ur Microscopic Review INDICATED Urine Culture Comments INDICATED - Rads (name of study) CT abd/pelvis Radiology: Final report received, EMP read indepedently, See rad report PD MEDICAL DECISION MAKING - ED course Complexity details: reviewed results, re-evaluated patient, considered differential, d/w patient ED course: The patient is given a liter of 0.9 normal saline and treated with doses of Zofran and Toradol. His urinalysis was strongly positive for infection, also with positive blood, and elevated specific gravity, and glucose. I did obtain laboratory studies on the patient and found patient to A normal white blood cell count and kidney function. The patient was sent for CT imaging, and did not, which showed a 7 mm stone in the proximal ureter on the right, with minimal hydronephrosis. Sounded similar to the one that had been present about 8 years ago. Unfortunately, radiologist interpretation of the CT was not available for about [address] was performed. The patient was discharged on antibiotics. He has already seen urology for his kidney stones before, and Is encouraged to follow-up with either with his primary care physician or urology if the symptoms are not better in a week. Given the lack of hydronephrosis, stone is most likely chronic, as its measurements are nearly identical to stone measured a couple of years ago when patient is here for something similar. We have discussed home management of symptoms, as well as the usual indications for return. Departure - Departure Disposition: 01 Home, Self Care Clinical Impression: Dehydration Urinary tract infection Qualifiers: Urinary tract infection type: acute cystitis Hematuria presence: with hematuria Qualified Code(s): N30.01 - Acute cystitis with hematuria Condition: Stable Instructions: ED UTI Cystitis Male Prescriptions: Ciprofloxacin HCl [Cipro] 500 mg PO BID #20 tablet Comments: There is no evidence of a kidney stone on your CT at this time. Most likely, the symptoms you have been experiencing are due to inflammation from the infection of your urinary tract. You have been started on antibiotics for this tonight, and should fill the antibiotic prescription first thing in the morning when you wake up, so you do not miss any doses. Please be sure you drink plenty of fluids. If your symptoms are not noticeably improved in the next week, you will need to follow-up with your primary care physician for reevaluation. Discharge Date/Time: 12/12/20 02:00
[2020-12-12 01:55] VITALS: BP 124/84
--- NOTE | 2020-12-12 09:07 | CT Report ---
PROCEDURE: Abdomen/Pelvis WO INDICATIONS: Right flank pain, hematuria, h/o kidney stone TECHNIQUE: Noncontrast 5 mm thick sections acquired from the diaphragms to the symphysis. 5 mm coronal and sagi ttal reformats were then performed. For radiation dose reduction, the following was used: automated exposure control, adjustment of mA and/or kV according to patient size. COMPARISON: CT abdomen and pelvis with contrast 06/11/2019 and 05/03/2017. Ultrasound abdomen, 020. FINDINGS: Image quality: Excellent. ABDOMEN: Lung bases: Lung bases are clear. Heart size is normal. Solid organs: Liver and spleen are normal in size. Gallbladder may be a small gallstones. Pancreas is normal in contours. No adrenal nodules. There is a 5 x 7 mm stone proximal left ureter. Kidneys are normal in size, without hydronephrosis or nephrolithiasis. Peritoneum and bowel: Unenhanced bowel loops demonstrate normal wall thickness and caliber. No free fluid or air. Nodes and vessels: No retroperitoneal or mesenteric adenopathy by size criteria. Aorta and inferior vena cava are normal in caliber. Miscellaneous: No ventral hernias. PELVIS: Genitourinary: Bladder is not fully distended. Enlarged prostate. Miscellaneous: No inguinal hernias or adenopathy. Bones: No suspicious bony lesions. No vertebral body compression fractures. IMPRESSION: 1. A 5 x 7 mm stone in the proximal right ureter. No significant hydronephrosis. 2. Suspect cholelithiasis. No significant discrepancy with the preliminary interpretation. Reviewed by: Telly Freeman MD on 12/12/2020 9:06 AM PDT Approved by: Telly Freeman MD on 12/12/2020 9:06 AM PDT Station ID: [id number]
== END 2020-12-12 02:00 | disposition home or self-care (01) ==
LOC: ED 23:02
DX: N30.01 Acute cystitis with hematuria (principal); E86.0 Dehydration; N20.1 Calculus of ureter
CPT/HCPCS: 36415; 74176; 80053; 81001; 83690; 85025; 87086; 96361; 96374; 96375; 99284; A9270; 81003

== ENCOUNTER 2020-12-14 12:36 | Emergency (ER) | payer MEDICAID ==
--- OUTSIDE RECORDS SUMMARY | 2020-12-14 12:41 | EXTERNAL MEDICAL SUMMARY RPT | Continuity of Care Document ---
:1975 Demographics Phone Unavailable Preferred Language Unknown Marital Status Unknown Restorationist Affiliation Unknown Race Unknown Ethnic Group Unknown Author Organization [place] Address [address] [phone] Phone Social History date description facility [phone]
[2020-12-14 13:21] LABS: BASOPHILS # (AUTO) 0.1 10^3/uL (0.0-0.1); BASOPHILS % (AUTO) 0.6 %; EOSINOPHILS # (AUTO) 0.2 10^3/uL (0.0-0.7); EOSINOPHILS % (AUTO) 2.4 %; HCT - HEMATOCRIT 49.5 % (42.0-52.0); HGB - HEMOGLOBIN 16.4 g/dL (14.0-18.0); LYMPHOCYTES # (AUTO) 1.5 10^3/uL (1.5-3.5); LYMPHOCYTES % (AUTO) 16.6 %; MEAN CORPUSCULAR HEMOGLOBIN 33.1 pg (27.0-31.0); MEAN CORPUSCULAR HGB CONC 33.1 g/dL (32.0-36.0); MEAN CORPUSCULAR VOLUME 99.8 fL (80.0-94.0); MEAN PLATELET VOLUME 10.2 fL (7.4-11.4); MONOCYTES # (AUTO) 0.8 10^3/uL (0.0-1.0); MONOCYTES % (AUTO) 9.3 %; NEUTROPHILS # (AUTO) 6.3 10^3/uL (1.5-6.6); NEUTROPHILS % (AUTO) 70.8 %; PLT - PLATELET COUNT 192 10^3/uL (130-450); RED BLOOD COUNT 4.96 10^6/uL (4.70-6.10); RED CELL DISTRIBUTION WIDTH 11.9 % (12.0-15.0); WHITE BLOOD COUNT 8.8 x10^3/uL (4.8-10.8)
[2020-12-14] MEDS ORDERED: SODIUM CHLORIDE 0.9% 1,000 ML IV STA (13:32)
[2020-12-14] MEDS ORDERED: KETOROLAC 30 MG/ML VIAL IVP STA (13:32)
[2020-12-14] MEDS ORDERED: ONDANSETRON 4 MG/2 ML VIAL IVP STA (13:32)
[2020-12-14 13:39] LABS: ALBUMIN 4.5 g/dL (3.2-5.5); ALBUMIN/GLOBULIN RATIO 1.1 (1.0-2.2); BILIRUBIN,TOTAL 1.5 mg/dL (0.2-1.0); CALCIUM 10.1 mg/dL (8.5-10.3); CREATININE 0.9 mg/dL (0.6-1.2); POTASSIUM 3.2 mmol/L (3.5-5.0); TOTAL PROTEIN 8.7 g/dL (6.7-8.2)
--- OUTSIDE RECORDS SUMMARY | 2020-12-14 13:53 | EXTERNAL MEDICAL SUMMARY RPT | Continuity of Care Document ---
:1975 Demographics Phone Unavailable Preferred Language Unknown Marital Status Unknown Church Affiliation Unknown Race Unknown Ethnic Group Unknown Author Organization [place] Address [address] [place] [address] Phone Social History date description facility [phone]
[2020-12-14 13:56] LABS: GLUCOSE, URINE (UA) NEGATIVE (NEGATIVE); KETONES,URINE (UA) >=80 mg/dL (NEGATIVE); LEUKOCYTE ESTERASE, URINE NEGATIVE (NEGATIVE); NITRITE,URINE POSITIVE (NEGATIVE); OCCULT BLOOD,URINE LARGE (NEGATIVE); PROTEIN,URINE 100 mg/dL (NEGATIVE); UROBILINOGEN,URINE 1 (NORMAL) E.U./dL (NORMAL)
[2020-12-14 13:58] LABS: CLARITY,URINE CLOUDY (CLEAR)
[2020-12-14 14:03] LABS: BILIRUBIN,URINE SMALL (NEGATIVE); ICTOTEST,URINE POSITIVE
[2020-12-14 14:08] LABS: RBC,URINE TNTC /HPF (0-5); WBC,URINE 0-3 /HPF (0-3)
[2020-12-14 14:09] LABS: BACTERIA,URINE Few /HPF (None Seen); SQUAMOUS EPITHELIAL CELL,UR RARE Squamous (<= Few)
[2020-12-14] MEDS ORDERED: CIPROFLOXACIN 400 MG/200 ML 400 MG/200 ML BAG IV STA (14:13)
--- NOTE | 2020-12-14 15:34 | ED Physician Documentation ---
History of Present Illness - Stated complaint Stated Complaint: ABD/BACK PX - Chief complaint Chief Complaint: Abd Pain - History obtained from History obtained from: Patient - Additonal information Additional information: Patient returns emergency department with chief complaint of increasing right flank pain and dysuria, as well as unable to keep anything down for the last 3 days. Patient was seen here 3 days ago for right flank pain and vomiting, and found to have a strongly positive urinalysis. CT scan at that time showed a nonobstructive stone 7 mm in the right ureter. The patient's labs were unremarkable at that time. The patient was placed on ciprofloxacin at that time and discharged with a prescription for the same. He was instructed at that time of the need to follow-up with urology. The patient comes back today stating that he never picked up his antibiotics and symptoms have been getting worse. Patient denies any fevers or chills. He has not noted passage of the stone. No migration of his pain. Pt does feel that he is dehydrated as he has not even been able to keep fluids down. He states he vomited 3 cups of water that he drank this morning. He states he has not eaten any food in the last couple of days. No other complaints at this time. Review of Systems Ten Systems: 10 systems reviewed and negative Constitutional: reports: Reviewed and negative Eyes: reports: Reviewed and negative Ears: reports: Reviewed and negative Nose: reports: Reviewed and negative Throat: reports: Reviewed and negative Cardiac: reports: Reviewed and negative Respiratory: reports: Reviewed and negative GI: reports: Nausea, Vomiting, Diarrhea : reports: Dysuria Skin: reports: Reviewed and negative Musculoskeletal: reports: Back pain Neurologic: reports: Reviewed and negative Psychiatric: reports: Reviewed and negative Endocrine: reports: Reviewed and negative Immunocompromised: reports: Reviewed and negative PD PAST MEDICAL HISTORY - Past Medical History Past Medical History: Yes Cardiovascular: None Respiratory: None Neuro: None Endocrine/Autoimmune: None GI: None : Kidney stones HEENT: None Psych: Depression Musculoskeletal: None Derm: None - Past Surgical History Past Surgical History: No - Present Medications Home Medications: Ambulatory Orders Medication Instructions Recorded Confirmed Tamsulosin [Flomax] 0.4 mg PO DAILY #5 capsule 06/11/19 12/12/20 Ciprofloxacin HCl [Cipro] 500 mg PO BID #20 tablet 12/12/20 - Allergies Allergies/Adverse Reactions: Allergies Allergy/AdvReac Type Severity Reaction Status Date / Time No Known Drug Allergies Allergy Verified 12/14/20 12:55 - Social History Does the pt smoke?: No Smoking Status: Never smoker Does the pt drink ETOH?: Yes Does the pt have substance abuse?: No - Immunizations Immunizations are current?: No - POLST Patient has POLST: No PD ED PE NORMAL - Vitals Vital signs reviewed: Yes - General General: Alert and oriented X 3, No acute distress, Well developed/nourished - HEENT HEENT: Atraumatic, PERRL, EOMI, Moist mucous membranes - Neck Neck: Supple, no meningeal sign - Cardiac Cardiac: RRR, No murmur, Strong equal pulses - Respiratory Respiratory: No respiratory distress, Clear bilaterally - Abdomen Abdomen: Soft, Non distended, Other (Tenderness right flank, no rebound or guarding) - Back Back: No spinal TTP, Other (R CVA tenderness.) - Derm Derm: Normal color, Warm and dry, No rash - Extremities Extremities: No deformity, No edema, No calf tenderness / cord - Neuro Neuro: Alert and oriented X 3, stone fabricator 2-12 intact, No motor deficit, Normal speech - Psych Psych: Normal mood, Normal affect Results - Vitals Vitals: Vital Signs - 24 hr 12/14/20 12/14/20 12/14/20 12:49 13:15 13:30 Temperature 35.5 C L Heart Rate 53 L 54 L 60 Respiratory 28 H 20 18 Rate Blood Pressure 171/107 H 158/91 H 129/97 H O2 Saturation 100 100 100 12/14/20 12/14/20 12/14/20 13:49 14:00 14:30 Temperature 36.7 C Heart Rate 62 68 Respiratory 16 16 Rate Blood Pressure 118/84 H 118/87 H O2 Saturation 100 96 12/14/20 15:00 Temperature Heart Rate 72 Respiratory 16 Rate Blood Pressure 114/78 O2 Saturation 97 Oxygen O2 Source Room air - Labs Labs: Laboratory Tests 12/14/20 12/14/20 12/14/20 13:09 13:09 13:33 WBC 8.8 RBC 4.96 Hgb 16.4 Hct 49.5 MCV 99.8 H MCH 33.1 H MCHC 33.1 RDW 11.9 L Plt Count 192 MPV 10.2 Neut # (Auto) 6.3 Lymph # (Auto) 1.5 [place] # (Auto) 0.8 Eos # (Auto) 0.2 Baso # (Auto) 0.1 Absolute Nucleated RBC 0.00 Nucleated RBC % 0.0 Sodium 140 Potassium 3.2 L Chloride 103 Carbon Dioxide 20 L Anion Gap 17.0 H BUN 11 Creatinine 0.9 Estimated GFR (MDRD) 90 Glucose 115 H Calcium 10.1 Total Bilirubin 1.5 H AST 44 H ALT 36 Alkaline Phosphatase 74 Total Protein 8.7 H Albumin 4.5 Globulin 4.2 Albumin/Globulin Ratio 1.1 Lipase 30 Urine Color BROWN Urine Clarity CLOUDY Urine pH 6.0 Ur Specific [place] >=1.030 H Urine Protein 100 H Urine Glucose (UA) NEGATIVE Urine Ketones >=80 H Urine Occult Blood LARGE H Urine Nitrite POSITIVE H Urine Bilirubin SMALL H Urine Urobilinogen 1 (NORMAL) Ur Leukocyte Esterase NEGATIVE Urine RBC TNTC H Urine WBC 0-3 Ur Squamous Epith Cells RARE Squamous Urine Bacteria Few Ur Microscopic Review INDICATED Urine Culture Comments INDICATED PD MEDICAL DECISION MAKING - ED course Complexity details: reviewed old records, reviewed results, re-evaluated patient, considered differential, d/w patient ED course: Patient was treated with IV fluids, Zofran, and Toradol and worked up with laboratory studies and urinalysis. The patient's white blood cell count was normal at 8.8. His urinalysis still was strongly positive with positive nitrite, bacteria and white blood cells, as well as red blood cells too numerous to count and elevated specific gravity. The patient was given an IV dose of ciprofloxacin here in the emergency department. I did consult with Dr. Westfall of urology at [facility] to determine what should be done with this patient. She did point out that the patient had a negative culture from his urinalysis on the eighth of this month, and that the findings on urinalysis may be simply due to the stone. However, since he has been unable to hold anything down for the last few days, she did ultimately feel that patient should come over to have a stent placed. At her request, I did speak with hospitalist Dr. Noland, who ultimately agree to accept the patient in transfer. Plan will be for the patient to go to operating room this evening. The patient had requested to have some p.o. fluid, and I did explain to him that he will need to stay n.p.o., based on the plan for his care this evening. Patient understands that he will be transferred to [facility] and that is for him to have a stent placed this evening. Departure - Departure Disposition: 02 Transfer Acute Care Hosp Clinical Impression: Vomiting Qualifiers: Vomiting type: unspecified Vomiting Intractability: non-intractable Nausea presence: with nausea Qualified Code(s): R11.2 - Nausea with vomiting, unspecified Condition: Serious
[2020-12-14 16:23] VITALS: BP 119/78
== END 2020-12-14 16:33 | disposition short-term general hospital (02) ==
LOC: ED 12:36
DX: R11.2 Nausea with vomiting, unspecified (principal)
CPT/HCPCS: 36415; 80053; 81001; 81003; 83690; 85025; 87086; 96365; 96375; 99284

== ENCOUNTER 2020-12-14 16:35 | Outpatient (CLI) | payer MEDICAID | END 2020-12-14 16:36 | disposition short-term general hospital (02) | LOC: EMS 16:35 | PROVIDERS: ATTEND Emergency Medicine | DX: N20.1 Calculus of ureter (principal); N39.0 Urinary tract infection, site not specified; R11.10 Vomiting, unspecified | CPT/HCPCS: A0425; A0428 ==

== ENCOUNTER 2021-01-27 16:05 | Outpatient (CLI) | payer MEDICAID | END 2021-01-27 16:06 | disposition home or self-care (01) | LOC: COV 16:05 | PROVIDERS: ATTEND Surgery | DX: Z01.812 Encounter for preprocedural laboratory examination (principal); R10.9 Unspecified abdominal pain; R14.0 Abdominal distension (gaseous); Z20.822 Contact with and (suspected) exposure to COVID-19 ==

== ENCOUNTER 2021-01-30 11:44 | Day surgery (SDC) | payer MEDICAID ==
--- OUTSIDE RECORDS SUMMARY | 2021-01-30 11:48 | EXTERNAL MEDICAL SUMMARY RPT | Continuity of Care Document ---
:1975 Demographics Phone Unavailable Preferred Language Unknown Marital Status Unknown Jainism Affiliation Unknown Race Unknown Ethnic Group Unknown Author Organization [place] Address [address] [phone] Phone Allergies Encounters Medications Problems Results
[2021-01-30] MEDS ORDERED: LACTATED RINGERS 1,000 ML IV ONE ×2 (11:59→16:00)
[2021-01-30] MEDS ORDERED: fentaNYL 250 MCG/5 ML VIAL ONE (14:50)
[2021-01-30] MEDS ORDERED: MIDAZOLAM 2 MG/2 ML VIAL ONE ×4 (14:50→15:18)
[2021-01-30] MEDS ORDERED: BENZOCAINE/TETRACAINE/BUTAMBEN 20 GM TOP ONE ×2 (14:51→15:01)
[2021-01-30] MEDS ORDERED: LIDO GARGLE 30 ML BOTTLE PO ONE ×2 (14:51→15:01)
[2021-01-30] MEDS ORDERED: LIDO GARGLE 30 ML BOTTLE ONE (14:51)
[2021-01-30] MEDS ORDERED: PROPOFOL 200 MG/20 ML VIAL IVP ONE (15:43)
[2021-01-30 16:19] VITALS: BP 125/90
--- NOTE | 2021-01-30 20:29 | ANESTHESIA POST OP EVALUATION ---
Anesthesia Post Eval - Post Anesthesia Eval Vitals: Last Vital Signs Temp 36.2 C L 01/30/21 16:00 Pulse 84 01/30/21 16:18 Resp 17 01/30/21 16:18 BP 125/90 H 01/30/21 16:18 Pulse Ox 100 01/30/21 16:18 CV Function Including HR & BP: Stable Pain Control: Satisfactory Nausea & Vomiting: Negative Mental Status: Baseline Respiratory Status: Airway Patent Hydration Status: Satisfactory Anesthesia Complications: None
--- NOTE | 2021-01-30 20:37 | CONSULTATION NOTE ---
Consultation Report: called in to rescue NM sedation, report from RN. Unable to do preanesthesia evaluation
== END 2021-01-30 11:45 | disposition home or self-care (01) ==
LOC: SDS 11:44
PROVIDERS: ATTEND Surgery
PROC: 0DJ08ZZ Inspection of Upper Intestinal Tract, Via Natural or Artificial Opening Endoscopic (ICD-10-PCS; 2021-01-30)
PROC: 0DBK8ZX Excision of Ascending Colon, Via Natural or Artificial Opening Endoscopic, Diagnostic (ICD-10-PCS; principal; 2021-01-30 15:00)
PROC: 0DBM8ZX Excision of Descending Colon, Via Natural or Artificial Opening Endoscopic, Diagnostic (ICD-10-PCS; 2021-01-30 15:00)
DX: R10.9 Unspecified abdominal pain (principal); R14.0 Abdominal distension (gaseous); R10.13 Epigastric pain; D12.2 Benign neoplasm of ascending colon; K29.70 Gastritis, unspecified, without bleeding; F17.210 Nicotine dependence, cigarettes, uncomplicated
CPT/HCPCS: 43235; 45380; A9270; J3010; J7120

== ENCOUNTER 2021-10-28 15:32 | Emergency (ER) | payer OTHER, MEDICAID ==
--- NOTE | 2021-10-28 15:53 | ED Physician Documentation ---
PD HPI HEAD INJURY - Stated complaint Stated Complaint: FALL,HEAD INJURY-L&I - Chief complaint Chief Complaint: Trauma Hd/Nk - History obtained from History obtained from: Patient - Additional information Additional information: 46-year-old gentleman was at work two evenings ago, slipped and fell forward hitting his head on a TV. He works in a restaurant. He has severe headache and is persistently vomiting and complaining of neck pain. Declines medications for pain or nausea on initial evaluation. Review of Systems Constitutional: denies: Fever, Chills Eyes: reports: Photophobia Cardiac: denies: Chest pain / pressure, Palpitations Respiratory: denies: Dyspnea, Cough PD PAST MEDICAL HISTORY - Past Medical History Cardiovascular: None Respiratory: None Neuro: None Endocrine/Autoimmune: None GI: None : Kidney stones HEENT: None Psych: Depression Musculoskeletal: None Derm: None - Past Surgical History Past Surgical History: No - Present Medications Home Medications: Ambulatory Orders Medication Instructions Recorded Confirmed No Known Home Medications 01/30/21 01/30/21 - Allergies Allergies/Adverse Reactions: Allergies Allergy/AdvReac Type Severity Reaction Status Date / Time No Known Drug Allergies Allergy Verified 10/28/21 15:46 - Social History Does the pt smoke?: No Smoking Status: Never smoker Does the pt drink ETOH?: Yes Does the pt have substance abuse?: No - Immunizations Immunizations are current?: No - POLST Patient has POLST: No PD ED PE NORMAL - Vitals Vital signs reviewed: Yes - General General: Alert and oriented X 3, Other (Light sensitive and mildly distressed from headache.) - HEENT HEENT: PERRL, EOMI - Neck Neck: No adenopathy, Other (Diffuse C-spine tenderness, nothing focal) - Cardiac Cardiac: RRR, No murmur - Respiratory Respiratory: No respiratory distress, Clear bilaterally - Abdomen Abdomen: Non tender - Back Back: No CVA TTP, No spinal TTP - Derm Derm: Normal color, Warm and dry - Extremities Extremities: No edema, No calf tenderness / cord - Neuro Neuro: Alert and oriented X 3, No motor deficit, No sensory deficit, Normal speech Eye Opening: Spontaneous Motor: Obeys Commands Verbal: Oriented GCS Score: 15 - Psych Psych: Normal mood, Normal affect Results - Vitals Vitals: Vital Signs - 24 hr 02/23/22 02/23/22 15:42 16:15 Temperature 36.4 C L Heart Rate 102 H 90 Respiratory 16 20 Rate Blood Pressure 174/84 H O2 Saturation 99 98 Oxygen O2 Source Room air PD MEDICAL DECISION MAKING - ED course ED course: 46-year-old gentleman with severe headache after head injury, and persistent vomiting. The time course would suggest against intracranial hemorrhage but his symptoms are severe so will CT. Departure - Departure Disposition: 01 Home, Self Care Clinical Impression: Concussion, Neck strain Condition: Good Record reviewed to determine appropriate education?: Yes Instructions: ED Sprain Strain Neck, ED Concussion Comments: Tylenol and/or ibuprofen as needed for pain. Return for new or worsening symptoms. Follow-up with your doctor next week for recheck if not completely improved. Forms: Activity restrictions
--- NOTE | 2021-10-28 16:21 | CT Report ---
PROCEDURE: HEAD WO INDICATIONS: head injury TECHNIQUE: Noncontrast 4.5 mm thick angled axial sections acquired from the foramen magnum to the vertex. For r adiation dose reduction, the following was used: automated exposure control, adjustment of mA and/or kV according to patient size. COMPARISON: Correlation is made with the accompanying head CT, 10/28/2021. FINDINGS: Image quality: There is streak artifact seen through the skull base. CSF spaces: Basal cisterns are patent. No extra-axial fluid collections. Ventricles are normal in size and shape. Brain: No midline shift. No intracranial masses or hemorrhage. Melendrez-white matter interface is norm al. Skull and face: Calvarium and visualized facial bones are intact, without suspicious lesions. Sinuses: Mild to moderate mucosal thickening is seen within the paranasal sinuses. No significant abn ormal fluid can be seen within the mastoid air cells. IMPRESSION: No significant intracranial abnormality is seen. No intracranial hemorrhage is seen. Paranasal sinus disease incidentally noted. Reviewed by: Adam Colunga MD on 10/28/2021 3:20 PM [place] Approved by: Adam Colunga MD on 10/28/2021 3:20 PM [facility] Station ID: [id number]
--- NOTE | 2021-10-28 16:21 | CT Report ---
PROCEDURE: CERVICAL SPINE WO INDICATIONS: head injury TECHNIQUE: Noncontrast 3 mm thick sections acquired from the skull base to the T4 level. Sagittal and coronal r eformats were then constructed. For radiation dose reduction, the following was used: automated exp osure control, adjustment of mA and/or kV according to patient size. COMPARISON: Correlation is made with the accompanying head CT, 10/28/2021. FINDINGS: Image quality: Excellent. Bones: No fractures or dislocations. Visualized superior ribs are intact. At the C5-C6 level, there is moderate disc space narrowing seen. Associated endplate irregularity and sclerosis can be seen. Posteriorly directed endplate osteophytes are seen. Focal degenerative change can also be seen involving the C1-C2 interface anteriorly. Milder degenerative changes are seen else where. There is reversal of the normal cervical lordosis, with the apex at the C5-C6 level. Soft tissues: Prevertebral soft tissues are normal in thickness. No paravertebral hematomas. No ap ical pneumothoraces. IMPRESSION: No acute fracture can be seen. Focal C5-C6 degenerative change. Reversal of the normal cervical lordosis is seen. This is commonly observed in patients with muscular spasm. Reviewed by: Adam Colunga MD on 10/28/2021 3:19 PM [facility] Approved by: Adam Colunga MD on 10/28/2021 3:19 PM [facility] Station ID: [id number]
[2021-10-28 16:34] VITALS: BP 135/93
== END 2021-10-28 16:33 | disposition home or self-care (01) ==
LOC: ED 15:32
DX: S06.0X9A Concussion with loss of consciousness of unspecified duration, initial encounter (principal); S16.1XXA Strain of muscle, fascia and tendon at neck level, initial encounter; W01.198A Fall on same level from slipping, tripping and stumbling with subsequent striking against other object, initial encounter; Y93.89 Activity, other specified; Y92.511 Restaurant or cafe as the place of occurrence of the external cause; Y99.0 Civilian activity done for income or pay
CPT/HCPCS: 99282; 99284

== ENCOUNTER 2023-06-16 15:19 | Outpatient (CLI) | payer MEDICAID ==
[2023-06-16 15:29] LABS: BASOPHILS # (AUTO) 0.1 10^3/uL (0.0-0.1); BASOPHILS % (AUTO) 0.7 %; EOSINOPHILS # (AUTO) 0.5 10^3/uL (0.0-0.7); EOSINOPHILS % (AUTO) 6.1 %; HCT - HEMATOCRIT 45.5 % (42.0-52.0); HGB - HEMOGLOBIN 15.6 g/dL (14.0-18.0); LYMPHOCYTES # (AUTO) 2.3 10^3/uL (1.5-3.5); MEAN CORPUSCULAR HEMOGLOBIN 32.2 pg (27.0-31.0); MEAN CORPUSCULAR HGB CONC 34.3 g/dL (32.0-36.0); MEAN CORPUSCULAR VOLUME 93.8 fL (80.0-94.0); MONOCYTES # (AUTO) 0.8 10^3/uL (0.0-1.0); MONOCYTES % (AUTO) 9.4 %; NEUTROPHILS # (AUTO) 4.6 10^3/uL (1.5-6.6); NEUTROPHILS % (AUTO) 55.6 %; PLT - PLATELET COUNT 196 10^3/uL (130-450); RED BLOOD COUNT 4.85 10^6/uL (4.70-6.10); RED CELL DISTRIBUTION WIDTH 11.9 % (12.0-15.0); WHITE BLOOD COUNT 8.3 x10^3/uL (4.8-10.8)
[2023-06-16 15:54] LABS: ALBUMIN 4.4 g/dL (3.2-5.5); ALBUMIN/GLOBULIN RATIO 1.5 (1.0-2.2); ALKALINE PHOSPHATASE 64 IU/L (42-121); ALT ALANINE AMINOTRANSFERASE 20 IU/L (10-60); AST ASPARTATE AMINOTRANSFERASE 24 IU/L (10-42); BILIRUBIN,TOTAL 0.6 mg/dL (0.2-1.0); BUN - BLOOD UREA NITROGEN 18 mg/dL (6-20); CALCIUM 9.8 mg/dL (8.5-10.3); CARBON DIOXIDE - CO2 25 mmol/L (21-32); CHLORIDE 106 mmol/L (101-111); CHOLESTEROL 232 mg/dL; CREATININE 0.7 mg/dL (0.6-1.3); GFR - MDRD 119 (>89); GLUCOSE 119 mg/dL (74-104); HDL CHOLESTEROL 77 mg/dL; LDL CHOLESTEROL,CALCULATED 128 mg/dL; LDL/HDL RATIO 1.7 (<3.6); POTASSIUM 4.1 mmol/L (3.5-4.5); SODIUM 139 mmol/L (135-145); TOTAL PROTEIN 7.3 g/dL (6.4-8.9); TRIGLYCERIDES 135 mg/dL (48-352); VLDL CHOLESTEROL 27 mg/dL
== END 2023-06-16 15:20 | disposition home or self-care (01) ==
LOC: LAB 15:19
PROVIDERS: ATTEND Physician Assistant
DX: Z79.899 Other long term (current) drug therapy (principal); Z13.220 Encounter for screening for lipoid disorders
CPT/HCPCS: 36415; 80053; 80061; 83721; 85025

== ENCOUNTER 2023-06-24 08:34 | Outpatient (CLI) | payer MEDICAID ==
--- NOTE | 2023-06-24 12:14 | CT Report ---
PROCEDURE: Low Dose Lung Cancer Screen INDICATIONS: TOBACCO DEPENDENCE TECHNIQUE: A CT scan of the chest was performed. Intravenous contrast media was not administered. Images were re corded and evaluated at appropriate window settings. Reformats: axial MIP of the chest, coronal and s agittal. For radiation dose reduction, the following was used: automated exposure control, adjustment of mA and/or kV according to patient size. COMPARISON: None. FINDINGS: Image quality: Excellent. Prior cancer history: None given Lungs and pleura: No pleural effusions. No pneumothorax. No suspicious pulmonary nodules which requi re follow up. Mediastinum: Heart size is normal. No pericardial effusion. No large vessel abnormality. No mediastin al adenopathy by size criteria. Chest wall and lower neck: Thyroid is unremarkable. No axillary or supraclavicular adenopathy by size . Bones: No aggressive osseous abnormality. Upper Abdomen: Unremarkable. IMPRESSION: Lung RAD: Recommendation: Continue annual screening in 12 Months with LDCT Non-Lung Significant Findings: None. Reviewed by: Randy Robles MD on 06/24/2023 12:13 PM PDT Approved by: Randy Robles MD on 06/24/2023 12:13 PM PDT Station ID: [id number]
== END 2023-06-24 08:35 | disposition home or self-care (01) ==
LOC: DI 08:34
PROVIDERS: ATTEND Physician Assistant
DX: Z12.2 Encounter for screening for malignant neoplasm of respiratory organs (principal); F17.200 Nicotine dependence, unspecified, uncomplicated